=== PATIENT | female | born 1990 | race Caucasian/White ===

== ENCOUNTER 2017-05-07 09:15 | Day surgery (SDC) | payer OTHER ==
[2017-05-06 10:56] VITALS: BMI 34.1
--- NOTE | 2017-05-07 10:19 | HP ---
History & Physical Update - History History: No Change - Physical Physical: No Change - Assessment Assessment: No Change - Plan Plan: No Change
[2017-05-07] MEDS ORDERED: MIDAZOLAM HCL 2 MG/2 ML SINGLE DOSE VIAL ONE (12:58)
[2017-05-07] MEDS ORDERED: PROPOFOL 20 ML ONE ×2 (12:58)
--- NOTE | 2017-05-07 13:40 | OP ---
Operative Note - Note: Operative Date: 05/07/17 Pre-Operative Diagnosis: 26 yo with postcoital bleeding, endometrial polyp Operation: Hysteroscopy, Polypectomy, D&C Findings: Endometrial polyps x 2 Retroverted 10wk size uterus Post-Operative Diagnosis: Same as Pre-op Surgeon: Stacie Corey Anesthesiologist/ADVOCACY DIRECTOR: Deja Snyder MD Anesthesia: General Specimens Removed: 1. Endometrial polyp x 2. 2. Endometrial curettings Estimated Blood Loss (mls): 10 Drains & Tubes with Location: Fluid deficit - 190cc Drains, Volume Out (mls): 150 Fluid Volume Replaced (mls): 1,000 Operative Report Dictated: Yes
[2017-05-07] MEDS ORDERED: ONDANSETRON 4 MG/2 ML VIAL IVPB PRN (13:41)
[2017-05-07] MEDS ORDERED: IBUPROFEN 600 MG TABLET (FP) PO PRN (13:41)
[2017-05-07] MEDS ORDERED: IBUPROFEN 800 MG/8 ML IJ IVPB PRN (13:41)
[2017-05-07] MEDS ORDERED: oxyCODONE HCL 5 MG TABLET PO PRN (13:41)
[2017-05-07] MEDS ORDERED: ELECTROLYTE-148 SOLN 1,000 ML IV SCH (13:45)
[2017-05-07 14:05] VITALS: TEMP 98.7
[2017-05-07 18:07] VITALS: BP 101/71; PULSE 79
--- NOTE | 2017-05-09 13:52 | PATH ---
Surgical Pathology Report Patient Name: ELISEO PLUMMER [facility]. Rec. #: [id number] /Age/Gender: 1990 (Age: 26) / F Account: [id number] Location: [facility] SURGICAL Taken: 05/07/2017 Received: 05/08/2017 Reported: 05/09/2017 Physicians: Stacie Corey M.D. Specimen(s) Received A: ENDOMETRIAL CURETTINGS B: POLYP Clinical History Postcoital bleeding Final Diagnosis A. ENDOMETRIUM, CURETTING: PROLIFERATIVE ENDOMETRIUM, PORTIONS OF BENIGN ENDOMETRIAL POLYP, AND BENIGN ENDOCERVICAL TISSUE. NO ENDOMETRIAL HYPERPLASIA OR CARCINOMA IDENTIFIED. B. ENDOMETRIUM, POLYPECTOMY: PROLIFERATIVE ENDOMETRIUM WITH AREAS CONSISTENT WITH BENIGN ENDOMETRIAL POLYP, AND BENIGN ENDOCERVICAL TISSUE. NO ENDOMETRIAL HYPERPLASIA OR CARCINOMA IDENTIFIED. Electronically Signed Marck Hodge M.D. Gross Description A. Received in formalin labeled "endometrial curettings," is a 2.8 x 2.7 x 0.3 cm aggregate of villagomez-brown soft tissue fragments. The formalin is filtered and the specimen is entirely submitted in one cassette. B. Received in formalin labeled "polyps," is a 2.7 x 1.4 x 0.3 cm aggregate of villagomez, irregular to polypoid soft tissue fragments admixed with mucus. The specimen is entirely submitted in one cassette. 05/08/201705/08/2017
--- NOTE | 2017-05-13 13:44 | OP ---
DATE OF OPERATION: 05/07/2017 PREOPERATIVE DIAGNOSIS: A 26-year-old with postcoital bleeding, endometrial polyp. POSTOPERATIVE DIAGNOSIS: A 26-year-old with postcoital bleeding, endometrial polyp. OPERATION: Hysteroscopy, polypectomy, dilation and curettage. FINDINGS: Two endometrial polyps, retroverted 10-week size uterus. SURGEON: Stacie Corey MD ANESTHESIOLOGIST: Deja Snyder MD ANESTHESIA: General. DESCRIPTION OF OPERATIVE PROCEDURE: After ensuring informed consent and witnessing it, the patient was brought to the operating room where she was placed in dorsal lithotomy position. The perineum and vagina were cleaned with Betadine and draped in a sterile fashion. The 5-mm Storz diagnostic hysteroscope was assembled. The vagina was retracted with Crespo retractors and cervix was grasped with single-tooth tenaculum and gradually dilating with increasing in size Jordanian dilators up to size 19 Jordanian, which allowed easy access of 5-mm hysteroscope. The intrauterine contents were surveyed, and bilateral ostia were visualized without any difficulty. Two small endometrial polyps were noted and were removed with sharp curettage. Subsequently, the hysteroscope was introduced once more. The uterus was found to be intact and free of polyps and overgrown endometrium. All instruments were subsequently removed from the cervix and the vagina. Estimated blood loss was 10 mL. Fluid deficit was 190 mL. Urine output 150 mL. Fluid volume replaced was 1000 mL. Specimens sent to Pathology: Endometrial polyp x2 and a second specimen endometrial curettings. The patient was brought to the recovery room in stable condition. Sponge and instrument count was correct x2. Jazz [id number]
== END 2017-05-07 17:10 | disposition home or self-care (01) ==
LOC: JASU-SURG 09:15
PROVIDERS: ATTEND Obstetrics & Gynecology
PROC: 0UB98ZX Excision of Uterus, Via Natural or Artificial Opening Endoscopic, Diagnostic (ICD-10-PCS; principal; 2017-05-07 11:00)
PROC: 0UDB8ZX Extraction of Endometrium, Via Natural or Artificial Opening Endoscopic, Diagnostic (ICD-10-PCS; 2017-05-07 11:00)
DX: N93.0 Postcoital and contact bleeding (principal); N84.0 Polyp of corpus uteri
CPT/HCPCS: 84703; 88305-TC; 94760

== ENCOUNTER 2019-10-27 07:35 | Inpatient (IN) | payer OTHER ==
[2019-10-27 08:44] VITALS: BMI 37.0
--- NOTE | 2019-10-27 08:49 | HP ---
Past Medical History - Primary Care Physician PCP:: Stacie Corey - Admission Chief Complaint: 29yo P2022 @ 39wks with two prior c/sections, for elective repeat, +FM, no VB, no LOF, no ctx History of Present Illness: 1. Pregestational DM - diet controled 2. C/section x 2 for repeat c/section and BL salpingectomy 3. h/o LSC Cholecystectomy 4. DNA testing - nl 46XX 5. Tdap and Flu shot in 6. GBS - neg History Source: Patient, Medical Record Limitations to Obtaining History: No Limitations - Past Medical History ...: 5 ...Para: 2 ...Term: 2 ...: 0 ...Spon : 1 ...Induced : 1 ...Multiple Gestation: 0 ...LMP: 01/28/20 ... Weeks Gestation by Dates: 39 ...EDC by Dates: 11/03/19 Endocrine: Yes: Diabetes Mellitus (diet controled) - Past Surgical History Past Surgical History: Yes: Cholecystectomy (LSC), (x2) Hx Myomectomy: No Hx Transabdominal Cerclage: No Additional Surgical History: 2017 - Hysteroscopy/Polypectomy - Smoking History Smoking history: Never smoked Have you smoked in the past 12 months: No - Alcohol/Substance Use Hx Alcohol Use: No History of Substance Use: reports: None - Social History Usual Living Arrangement: Yes: With Spouse Do you think of yourself as: Straight/Heterosexual History of Recent Travel: No Home Medications - Allergies Allergies/Adverse Reactions: Allergies Allergy/AdvReac Type Severity Reaction Status Date / Time No Known Drug Allergies Allergy Verified 10/27/19 08:16 - Home Medications Home Medications: Ambulatory Orders Prenat 115/Iron Fum/Folic/Dss [ 19 Tablet] 1 each PO DAILY 10/27/19 Review of Systems - Review of Systems Constitutional: reports: No Symptoms Eyes: reports: No Symptoms (0) HENT: reports: No Symptoms Neck: reports: No Symptoms Cardiovascular: reports: No Symptoms Respiratory: reports: No Symptoms Gastrointestinal: reports: No Symptoms Genitourinary: reports: No Symptoms Breasts: reports: No Symptoms Reported Musculoskeletal: reports: No Symptoms Integumentary: reports: No Symptoms Neurological: reports: No Symptoms Endocrine: reports: No Symptoms Hematology/Lymphatic: reports: No Symptoms Psychiatric: reports: No Symptoms Physical Exam - Maternity Vital Signs: Vital Signs Temperature 97.7 F 10/27/19 08:28 Pulse Rate 99 H 10/27/19 08:28 Respiratory Rate 20 10/27/19 08:28 Blood Pressure 109/73 10/27/19 08:28 O2 Sat by Pulse Oximetry (%) Constitutional: Yes: Well Nourished, No Distress, Calm Eyes: Yes: WNL HENT: Yes: WNL, Atraumatic, Normocephalic Neck: Yes: WNL, Supple, Trachea Midline Cardiovascular: Yes: WNL, Regular Rate and Rhythm Lungs: Clear to auscultation Breast(s): Yes: WNL - Abdominal Exam/OB Fundal Height: 39 Number of Fetuses: Single Presentation: Vertex Contractions: No Monitor Mode: External Heart Rate (range): 140 Category: I Accelerations: Uniform Decelerations: None - Vaginal Exam/OB Vaginal Bleediing: No Speculum Exam: No Dilatation (cm): closed Effacement (%): long Amniotic Membrane Status: Intact Presentation: Vertex/Position Station: -3 - Physical Exam Musculoskeletal: Yes: WNL Extremities: Yes: WNL Integumentary: Yes: WNL ...Motor Strength: WNL Psychiatric: Yes: WNL, Alert, Oriented Assessment/Plan 29yo P2 @ 39wks for Repeat c/section and Bilateral salpingectomy Admit to L&D NPO, labs, IVF Fetus CAtegory 1, mother VSS Consent signed Anesthesia and neonatology aware R/B/A discussed, all questions answered
--- NOTE | 2019-10-27 08:50 | PN ---
Delivery - Delivery Section: Repeat, Low Flap Transverse Type of Anesthesia: Spinal EBL (cc): 700 Delivery, Single - Stages of Labor Date of Delivery: 10/27/19 Time of Delivery: 09:52 Date Placenta Delivered: 10/27/19 Time Placenta Delivered: :53 Placenta: Yes: Expressed - Condition of Infant Pattern Scratcher/Electromechanical Inspector Present: Yes Name: Albert Yeager - 1 Minute Total Score: 9 5 Minutes Total Score: 9 - Feeding Plan Initial Plan: Elected not to breastfeed exclusively throughout hospitalization Remarks - Remarks Remarks: Uncomplicated delivery of the head and shoulders Bilateral fallopian tubes removed after uterus closed in 2 layers
--- NOTE | 2019-10-27 08:50 | OP ---
Operative Note - Note: Operative Date: 10/27/19 Pre-Operative Diagnosis: 29yo P2 @ 39wks, with prior c/s x 2, for repeat c/s and tubal ligation, no VB, no LOF, +FM, no ctx Operation: Repeat c/section x 3, bilateral salpingectomy Findings: Viable female, APGARs 9/9, 7.13lb Post-Operative Diagnosis: Same as Pre-op Surgeon: Stacie Corey Hr Systems Analyst: Dane Jacobsen Anesthesia: Spinal Specimens Removed: Full term placenta. Bilateral fallopian tubes Estimated Blood Loss (mls): 700 Drains, Volume Out (mls): 600 Fluid Volume Replaced (mls): 2,500 Operative Report Dictated: Yes
[2019-10-27] MEDS ORDERED: morphine SULFATE/PF 0.5 MG/ML (2cc Syringe - QUVA) ONE (08:56)
[2019-10-27] MEDS ORDERED: ePHEDrine SULFATE 50 MG/1 ML AMPULE ONE (08:57)
[2019-10-27] MEDS ORDERED: PROPOFOL 20 ML ONE (08:57)
[2019-10-27] MEDS ORDERED: SUCCINYLCHOLINE CHLORIDE 200 MG/10 ML SYRINGE ONE (08:57)
[2019-10-27] MEDS ORDERED: CITRIC ACID/SODIUM CITRATE 30 ML UNIT-DOSE CUP PO ONE (09:00)
[2019-10-27] MEDS ORDERED: morphine SULFATE/PF 0.5 MG/ML (2cc Syringe - QUVA) EP ONE (09:05)
[2019-10-27] MEDS ORDERED: BENZOCAINE 20% 57 GM BOTTLE TP PRN (09:15)
[2019-10-27] MEDS ORDERED: IBUPROFEN 800 MG/8 ML IJ IVPB PRN (09:15)
[2019-10-27] MEDS ORDERED: ELECTROLYTE-148 SOLN 1,000 ML IV SCH (09:15)
[2019-10-27] MEDS ORDERED: oxyCODONE HCL 5 MG TABLET PO PRN (09:15)
[2019-10-27] MEDS ORDERED: DEXTROSE 5%-LACTATED RINGERS 1,000 ML IV SCH (09:15)
[2019-10-27] MEDS ORDERED: METHYLERGONOVINE MALEATE 0.2 MG/1 ML AMP IM PRN (09:15)
[2019-10-27] MEDS ORDERED: WITCH HAZEL 50% (TUCKS) 40 PAD/JAR PAD TP PRN (09:15)
[2019-10-27] MEDS ORDERED: BENZOCAINE 28 GM HEMORRHOIDAL OINTMENT PR PRN (09:15)
[2019-10-27] MEDS ORDERED: OXYTOCIN 20 UNITS in 0.9% NS 20 UNIT/1,000 ML INFUS.BAG IV SCH (09:15)
[2019-10-27] MEDS ORDERED: CEFAZOLIN 1 GM in DEXTROSE 5%-WATER - 50 ML IVPB SCH (10:00)
[2019-10-27] MEDS ORDERED: diphenhydrAMINE HCL 25 MG CAPSULE (FP) PO PRN (10:08)
[2019-10-27] MEDS ORDERED: OXYTOCIN 10 UNITS/ML VIAL ONE (10:30)
[2019-10-27] MEDS ORDERED: OXYTOCIN 20 UNITS in 0.9% NS 20 UNIT/1,000 ML INFUS.BAG IV ONE (11:26)
[2019-10-27] MEDS: ENOXAPARIN NA (PORCINE) 40 MG/0.4 ML DISP.SYRIN SQ SCH (12:35)
[2019-10-27] MEDS: ONDANSETRON 4 MG/2 ML VIAL IVPUSH PRN ×2 (15:48→20:19)
[2019-10-27] MEDS: CEFAZOLIN 1 GM/D5W 1 GM/50 ML BAG IVPB SCH (17:52)
--- NOTE | 2019-10-27 23:40 | OP ---
DATE OF OPERATION: 10/27/2019 PREOPERATIVE DIAGNOSIS: A 29-year-old para 2 at 39 weeks, prior section twice, multiparity, denies permanent sterilization. POSTOPERATIVE DIAGNOSIS: A 29-year-old para 2 at 39 weeks, prior section twice, multiparity, denies permanent sterilization. PROCEDURE: section second repeat, bilateral salpingectomy. SURGEON: Barby Corey MD. BODY CORPORATE MANAGER: Dane Jacobsen MD. ANESTHESIOLOGIST: Deja Snyder MD. ANESTHESIA: Spinal. SPECIMENS REMOVED: Full-term placenta. Full-term female , Apgars 9 and 9, weighing 7 pounds 13 ounces. Bilateral fallopian tubes sent to pathology. DESCRIPTION OF OPERATIVE PROCEDURE: After assuring informed consent, patient was brought to the operating room where she was placed in dorsal supine position with left lateral tilt. Abdomen was prepped in sterile fashion. James catheter was placed after administering anesthesia. Patient was draped. Subsequently after completing the timeout, the Pfannenstiel skin incision was created in the area of the old incision, extended bilaterally with scalpel and Bovie cautery. Fascia was incised with Bovie cautery and extended bilaterally with Bovie cautery, dissected off the rectus abdominis muscle with good visualization of underlying structure with Bovie cautery. Muscle was incised in the midline after tenting it with Vero clamps and muscle was dissected superiorly and inferiorly with good visualization of underlying structures. Peritoneum as identified, tented with Vero clamps and also entered with Metzenbaum scissors, extended bilaterally with Bovie cautery. Bladder was retracted with low edge of the [place]. Some scarred bladder was noted adherent to the anterior abdominal wall and dissected bilaterally with Metzenbaum scissors. Low segment transverse incision was created with a scalpel and dissected bilaterally with bandage scissors. 's head identified and delivered atraumatically without difficulty. Shoulders delivered as well. Cords clamped and cut. Infant handed to waiting forensic accountant. Placenta expressed. Uterus cleared of clots and debris. Ring forceps used to open the cervix. Uterine incision was repaired with 0 Biosyn in running, locking fashion, and the 2nd imbricating suture was placed covering the 1st suture line with good visualization of the bladder. Uterus remained in situ. The excellent hemostasis was noted, and bilateral tubes were examined. Each individually was grasped with a [place] and series of Vero clamps were used to dissect entire length of the fallopian tube of the mesosalpinx and 0 Vicryl suture was used to suture tie mesosalpinx after each tube was resected off and sent to pathology. Excellent hemostasis was noted. Abdomen was copiously irrigated. Some omental adhesions were noted and dissected. Peritoneum was closed with 0 Biosyn. The muscle reapproximated by closing peritoneum. Fascia was repaired with 0 Vicryl in 2 fragments, each one starting from the angle. Excellent hemostasis was noted throughout. Subcutaneous tissue was reapproximated with 2-0 Vicryl interrupted sutures, and skin was closed with 4-0 V-Loc Biosyn in running fashion. The dressing was placed. Uterus subsequently was cleared from vaginal exam of clots and debris. Estimated blood loss 700 mL. Urine output 600 mL. Patient received 2500 mL of IV fluids. She tolerated procedure well. Instrument and sponge count was correct throughout the entire procedure. Patient was brought to the recovery room in stable condition. BARBY COREY M.D. [id number]
[2019-10-28] MEDS: CEFAZOLIN 1 GM/D5W 1 GM/50 ML BAG IVPB SCH (02:07)
[2019-10-28 08:26] LABS: BASO % 0.2 % (0-2.0); EOS % 0.2 % (0-4.5); HEMATOCRIT 31.6 % (32.4-45.2); HEMOGLOBIN 10.8 GM/dL (10.7-15.3); LYMPH % 17.1 % (8-40); MCH 29.4 pg (25.7-33.7); MCHC 34.2 g/dl (32.0-36.0); MEAN PLT VOLUME 8.5 fl (7.5-11.1); MONO % 5.6 % (3.8-10.2); NEUT % 76.9 % (42.8-82.8); PLATELET COUNT 208 K/MM3 (134-434); RBC 3.67 M/mm3 (3.60-5.2); RDW 14.3 % (11.6-15.6); WHITE BLOOD COUNT 10.2 K/mm3 (4.0-10.0)
--- NOTE | 2019-10-28 09:04 | PN ---
Post Progress Note - Subjective Subjective: No complaints. Pain is controlled. Pt is not passing flatus yet. No nausea or vomiting. No fever or chills. Post Day: 1 Type of Delivery: Repeat C/S Vital Signs: Vital Signs Temperature 98.3 F 10/28/19 06:00 Pulse Rate 87 10/28/19 06:00 Respiratory Rate 20 10/28/19 06:00 Blood Pressure 102/63 10/28/19 06:00 O2 Sat by Pulse Oximetry (%) 100 10/27/19 12:15 Breast Exam: Yes: Soft Uterus: Yes: Fundus Firm, Fundus below umbilicus, Non-tender Incision: Yes: Dressing dry and intact Abdomen/GI: Yes: Abdomen soft Lochia: Yes: Rubra Lochia, amount: Small Extremities: Yes: Calves non-tender Perineum: Yes: Intact Activity: Ambulating - Labs Labs: CBC WBC 10.2 K/mm3 (4.0-10.0) H 10/28/19 07:10 RBC 3.67 M/mm3 (3.60-5.2) 10/28/19 07:10 Hgb 10.8 GM/dL (10.7-15.3) 10/28/19 07:10 Hct 31.6 % (32.4-45.2) L 10/28/19 07:10 MCV 86.0 fl (80-96) 10/28/19 07:10 MCH 29.4 pg (25.7-33.7) 10/28/19 07:10 MCHC 34.2 g/dl (32.0-36.0) 10/28/19 07:10 RDW 14.3 % (11.6-15.6) 10/28/19 07:10 Plt Count 208 K/MM3 (134-434) 10/28/19 07:10 MPV 8.5 fl (7.5-11.1) 10/28/19 07:10 Absolute Neuts (auto) 7.9 K/mm3 (1.5-8.0) 10/28/19 07:10 Neutrophils % 76.9 % (42.8-82.8) 10/28/19 07:10 Lymphocytes % 17.1 % (8-40) D 10/28/19 07:10 Monocytes % 5.6 % (3.8-10.2) 10/28/19 07:10 Eosinophils % 0.2 % (0-4.5) 10/28/19 07:10 Basophils % 0.2 % (0-2.0) 10/28/19 07:10 Nucleated RBC % 0 % (0-0) 10/28/19 07:10
[2019-10-28] MEDS ORDERED: BISACODYL 10 MG SUPP.RECT RC PRN (09:16)
[2019-10-28] MEDS ORDERED: CEFAZOLIN 1 GM in DEXTROSE 5%-WATER - 50 ML IVPB SCH (09:17)
[2019-10-28] MEDS: ENOXAPARIN NA (PORCINE) 40 MG/0.4 ML DISP.SYRIN SQ SCH (09:44)
[2019-10-28] MEDS ORDERED: CEFAZOLIN 1 GM/D5W 1 GM/50 ML BAG IVPB SCH (09:45)
--- NOTE | 2019-10-28 11:08 | PN ---
Progress Note (short form) - Note Progress Note: 29F POD#1 for c section with spinal anesthesia with duramorph. This am patient doing well. N/V as well as pruritis has resolved. VSS.
[2019-10-28] MEDS: IBUPROFEN 600 MG TABLET (FP) PO PRN ×2 (12:25→21:00)
[2019-10-28] MEDS: SIMETHICONE 80 MG TAB.CHEW (FP) PO PRN (12:26)
[2019-10-28] MEDS: ACETAMINOPHEN 325 MG TABLET (FP) PO PRN (21:00)
--- NOTE | 2019-10-29 08:12 | PN ---
Post Progress Note - Subjective Subjective: Patient without acute complaints. Reports tolerating oral intake without nausea or vomiting. Ambulating without dizziness. Denies fevers or chills. Pain well controlled with oral pain medication. without difficulty. Passing flatus. Post Day: 2 Type of Delivery: Repeat C/S Vital Signs: Vital Signs Temperature 98.1 F 10/28/19 22:00 Pulse Rate 90 10/28/19 22:00 Respiratory Rate 20 10/28/19 22:00 Blood Pressure 105/66 10/28/19 22:00 O2 Sat by Pulse Oximetry (%) 100 10/27/19 12:15 Breast Exam: Yes: Soft Uterus: Yes: Fundus Firm, Fundus below umbilicus Incision: Yes: Sutures intact. No: Redness, Oozing Abdomen/GI: Yes: Abdomen soft, Passing flatus, Tolerating PO. No: Abdominal Distention, Tender Lochia: Yes: Rubra Lochia, amount: Moderate Extremities: Yes: Calves non-tender, Edema (trace) Activity: Ambulating - Labs Labs: CBC WBC 10.2 K/mm3 (4.0-10.0) H 10/28/19 07:10 RBC 3.67 M/mm3 (3.60-5.2) 10/28/19 07:10 Hgb 10.8 GM/dL (10.7-15.3) 10/28/19 07:10 Hct 31.6 % (32.4-45.2) L 10/28/19 07:10 MCV 86.0 fl (80-96) 10/28/19 07:10 MCH 29.4 pg (25.7-33.7) 10/28/19 07:10 MCHC 34.2 g/dl (32.0-36.0) 10/28/19 07:10 RDW 14.3 % (11.6-15.6) 10/28/19 07:10 Plt Count 208 K/MM3 (134-434) 10/28/19 07:10 MPV 8.5 fl (7.5-11.1) 10/28/19 07:10 Absolute Neuts (auto) 7.9 K/mm3 (1.5-8.0) 10/28/19 07:10 Neutrophils % 76.9 % (42.8-82.8) 10/28/19 07:10 Lymphocytes % 17.1 % (8-40) D 10/28/19 07:10 Monocytes % 5.6 % (3.8-10.2) 10/28/19 07:10 Eosinophils % 0.2 % (0-4.5) 10/28/19 07:10 Basophils % 0.2 % (0-2.0) 10/28/19 07:10 Nucleated RBC % 0 % (0-0) 10/28/19 07:10 Assessment/Plan 29 yo POD # 2 s/p repeat CD, afebrile, vital signs stable, doing well 1. Continue routine postoperative care. 2. Encourage ambulation and incentive spirometer use 3. Continue oral pain medication 4. Anticipate discharge home postoperative day #3 or #4
[2019-10-29] MEDS: IBUPROFEN 600 MG TABLET (FP) PO PRN ×3 (08:40→21:34)
[2019-10-29] MEDS: oxyCODONE HCL 5 MG TABLET PO PRN ×3 (08:40→21:34)
[2019-10-29] MEDS: ENOXAPARIN NA (PORCINE) 40 MG/0.4 ML DISP.SYRIN SQ SCH (09:19)
--- NOTE | 2019-10-29 12:13 | PATH ---
Surgical Pathology Report Patient Name: ELISEO PLUMMER [facility]. Rec. #: [id number] /Age/Gender: 1990 (Age: 29) / F Account: [id number] Location: [facility] OBS/CLAIMS TECHNICIAN Taken: 10/27/2019 Received: 10/28/2019 Reported: 10/29/2019 Physicians: Stacie Corey M.D. Specimen(s) Received A: PLACENTA B: LEFT PORTION OF FALLOPIAN TUBE C: RIGHT PORTION OF FALLOPIAN TUBE Clinical History at 39 weeks, previous x2, type II DM History of tonsillectomy, history of cholecystectomy, polypectomy Final Diagnosis A. PLACENTA, SECTION: 505 G THIRD TRIMESTER PLACENTA WITH TRIVASCULAR UMBILICAL CORD AND UNREMARKABLE PLACENTAL MEMBRANES. B. FALLOPIAN TUBE, LEFT, SALPINGECTOMY: FALLOPIAN TUBE WITH PARATUBAL CYST (INCLUDING FIMBRIATED END AND FULL LUMINAL PORTION). C. FALLOPIAN TUBE, RIGHT, SALPINGECTOMY: FALLOPIAN TUBE WITH PARATUBAL AND WALTHARD NEST CYSTS (INCLUDING FIMBRIATED END AND FULL LUMINAL PORTION). Electronically Signed Doris Interiano M.D. Gross Description A. The specimen is received fresh labeled placenta and is a 505 gram, 22.5 x 16.5 x 1.8 cm. placenta with attached membranes and umbilical cord. The attached membranes are villagomez, translucent with focal opacities and display focal circum-marginate insertion. The umbilical cord measures 12 cm. in length and averages 1.3 cm. in diameter. The cord inserts eccentrically, 4 cm. to the nearest margin. No true knots or strictures are identified. Cut surface of the umbilical cord reveals a vessels. The surface is calles-blue with minimal fibrin deposition and appropriate caliber vessels. The maternal surface is red-brown with focal defects. Sectioning reveals red-brown, spongy parenchyma. No lesions are identified. Filling Winder sections are submitted in three cassettes as follows: 1- membrane rolls and umbilical cord; 2-3- full thickness sections of placenta. B. Received in formalin labeled "left portion of fallopian tube," is a 5.5 cm in length fimbriated fallopian tube. The outer surface is villagomez-pink and smooth. Sectioning reveals an unremarkable lumen. Filling Winder sections are submitted in 2 cassettes as follows: 1-fimbria; 2-cross sections of fallopian tube. C. Received in formalin labeled "right portion of fallopian tube," is a 2.3 cm in length fimbriated portion of fallopian tube. The outer surface is villagomez-pink and smooth. Sectioning reveals an unremarkable lumen. Filling Winder sections are submitted in 2 cassettes as follows: 1-fimbria; 2-cross sections of fallopian tube. 10/28/2019 [facility]10/28/2019
[2019-10-29] MEDS: SIMETHICONE 80 MG TAB.CHEW (FP) PO PRN (16:00)
[2019-10-29] MEDS ORDERED: SENNOSIDES/DOCUSATE COMBO (SENNA PLUS) TABLET (UD) PO PRN (22:00)
--- NOTE | 2019-10-30 08:13 | PN ---
Progress Note (short form) - Note Progress Note: pod 3 ,no c/o . doing well, ambulating CBC, BMP 10/28/19 07:10 Last Vital Signs Temp Pulse Resp BP Pulse Ox 97.9 F 73 18 125/80 100 10/30/19 07:40 10/30/19 07:40 10/30/19 07:40 10/30/19 07:40 10/27/19 12:15 abdomen soft, no distension, no cva uterus firm, non tender lochia mild no calf tenderness plan ambulate , cbc pain management
[2019-10-30 09:07] LABS: BASO % 0.3 % (0-2.0); EOS % 2.9 % (0-4.5); HEMATOCRIT 32.3 % (32.4-45.2); HEMOGLOBIN 10.8 GM/dL (10.7-15.3); LYMPH % 26.5 % (8-40); MCH 28.9 pg (25.7-33.7); MCHC 33.4 g/dl (32.0-36.0); MEAN CELL VOLUME 86.6 fl (80-96); MEAN PLT VOLUME 8.1 fl (7.5-11.1); MONO % 5.2 % (3.8-10.2); NEUT % 65.1 % (42.8-82.8); PLATELET COUNT 229 K/MM3 (134-434); RBC 3.73 M/mm3 (3.60-5.2)
[2019-10-30] MEDS: ENOXAPARIN NA (PORCINE) 40 MG/0.4 ML DISP.SYRIN SQ SCH (09:19)
[2019-10-30] MEDS: IBUPROFEN 600 MG TABLET (FP) PO PRN (09:26)
[2019-10-30] MEDS: ACETAMINOPHEN 325 MG TABLET (FP) PO PRN (09:27)
[2019-10-30] MEDS: SIMETHICONE 80 MG TAB.CHEW (FP) PO PRN (09:29)
[2019-10-31] MEDS: ENOXAPARIN NA (PORCINE) 40 MG/0.4 ML DISP.SYRIN SQ SCH (09:29)
[2019-10-31] MEDS: IBUPROFEN 600 MG TABLET (FP) PO PRN (09:31)
[2019-10-31] MEDS: ACETAMINOPHEN 325 MG TABLET (FP) PO PRN (09:33)
[2019-10-31] MEDS: SIMETHICONE 80 MG TAB.CHEW (FP) PO PRN (09:33)
--- NOTE | 2019-10-31 09:35 | DS ---
Physical Exam-GERICARE AIDE TEACHER Vital Signs: Vital Signs Temperature 98.8 F 10/30/19 22:00 Pulse Rate 92 H 10/30/19 22:00 Respiratory Rate 18 10/30/19 22:00 Blood Pressure 129/79 10/30/19 22:00 O2 Sat by Pulse Oximetry (%) 100 10/27/19 12:15 Constitutional: Yes: Well Nourished, No Distress, Calm Eyes: Yes: WNL, Conjunctiva Clear, EOM Intact HENT: Yes: WNL, Atraumatic, Normocephalic Neck: Yes: WNL, Supple, Trachea Midline Cardiovascular: Yes: WNL, Regular Rate and Rhythm Respiratory: Yes: WNL, Regular, CTA Bilaterally Gastrointestinal: Yes: WNL ...Rectal Exam: Yes: WNL Renal/: Yes: WNL External Genitalia: Yes: Normal ....Post : Yes: Uterus firm, Uterus non-tender, Slight lochia rubra Breast(s): Yes: WNL Musculoskeletal: Yes: WNL Extremities: Yes: WNL Edema: Yes Edema: LLE: Trace, RLE: Trace Integumentary: Yes: WNL Wound/Incision: Yes: Clean/Dry, Well Approximated, Sutures Intact Neurological: Yes: WNL, Alert, Oriented ...Motor Strength: WNL Psychiatric: Yes: WNL, Alert, Oriented Labs: CBC, BMP 10/30/19 07:53 Delivery - Delivery Section: Repeat, Low Flap Transverse Type of Anesthesia: Spinal Episiotomy/Laceration: None EBL (cc): 700 Delivery, Single - Stages of Labor Date of Delivery: 10/27/19 Time of Delivery: 09:52 Time Placenta Delivered: 09:53 Placenta: Yes: Expressed - Condition of Infant Engineering Leader/Photolithographic Stripper Present: Yes Name: Albert Yeager Gender: Female Weight: 7 lb 13 oz Position: OA Total Hours ROM (Hrs/Mins): 3min - 1 Minute Total Score: 9 5 Minutes Total Score: 9 - [place] Feeding Plan Initial Plan: Elected not to breastfeed exclusively throughout hospitalization Discharge Summary Reason For Visit: C SECTION previous c/s Procedures: Principal: repeat LST c/s Other Procedures: bilateral salpingectomy Hospital Course: no complication Health Concerns: 0besity Plan of Treatment: wt loss, exercise, low carb diet Goals: normal BMI Condition: Good - Instructions Diet, Activity, Other Instructions: regular diet, no intercourse, follow up office 1 week if fever, pain, heavy vaginal bleeding call MD Referrals: Stacie Corey MD [Staff Physician] - Disposition: HOME - Home Medications Comprehensive Discharge Medication List: Ambulatory Orders Prenat 115/Iron Fum/Folic/Dss [ 19 Tablet] 1 each PO DAILY 10/27/19 Ibuprofen [Motrin -] 600 mg PO QID #28 tablet 10/31/19
[2019-10-31 11:10] VITALS: BP 126/76; PULSE 88; TEMP 98.6
== END 2019-10-31 14:00 | disposition home or self-care (01) | DRG 785 ==
LOC: JLDR 07:35 → J3W 12:35
PROVIDERS: ADMIT Obstetrics & Gynecology; ATTEND Obstetrics & Gynecology
PROC: 10D00Z1 Extraction of Products of Conception, Low, Open Approach (ICD-10-PCS; principal; 2019-10-27)
PROC: 0UT70ZZ Resection of Bilateral Fallopian Tubes, Open Approach (ICD-10-PCS; 2019-10-27)
DX: O34.211 Maternal care for low transverse scar from previous cesarean delivery (principal); O24.420 Gestational diabetes mellitus in childbirth, diet controlled; O99.214 Obesity complicating childbirth; E66.9 Obesity, unspecified; Z3A.39 39 weeks gestation of pregnancy; Z37.0 Single live birth; Z98.51 Tubal ligation status
CPT/HCPCS: 36415; 36600; 82803; 82962; 85025